=== PATIENT | female | born 1960 | race Caucasian/White ===

== ENCOUNTER 2016-11-26 05:57 | Outpatient (CLI) | payer OTHER ==
[2016-11-26 06:36] LABS: BASOPHILS # (AUTO) 0.1 K/uL (0.00-0.22); BASOPHILS % (AUTO) 1.3 % (0.0-2.0); EOSINOPHILS # (AUTO) 0.5 K/uL (0-0.4); EOSINOPHILS % (AUTO) 6.8 % (0.0-4.0); HEMATOCRIT 39.6 % (36-48); HEMOGLOBIN 13.2 g/dL (12.0-16.0); LYMPHOCYTES # (AUTO) 1.7 K/uL (2.5-16.5); LYMPHOCYTES % (AUTO) 23.7 % (20.5-51.1); MEAN CORPUSCULAR HEMOGLOBIN 28 pg (27-31); MEAN CORPUSCULAR HGB CONC 33 g/dL (33-37); MEAN CORPUSCULAR VOLUME 84 fL (80-94); MONOCYTES # (AUTO) 0.6 K/uL (0.8-1.0); MONOCYTES % (AUTO) 9.2 % (1.7-9.3); NEUTROPHILS # (AUTO) 4.1 K/uL (1.8-7.7); PLATELET COUNT (AUTO) 231 K/uL (140-450); RED BLOOD CELL COUNT(AUTO) 4.71 MIL/uL (4.20-5.40); RED CELL DISTRIBUTION WIDTH 13.6 % (11.6-13.7)
[2016-11-26 06:40] LABS: APPEARANCE,URINE CLEAR (CLEAR); BILIRUBIN,URINE NEGATIVE (NEGATIVE); BLOOD, URINE NEGATIVE (NEGATIVE); LEUKOCYTE ESTERASE ,URINE NEGATIVE (NEGATIVE); NITRITE, URINE NEGATIVE (NEGATIVE); PH,URINE 6.5 (5.0-9.0); PROTEIN,URINE NEGATIVE (NEGATIVE); UGLUCOSE NEGATIVE (NEGATIVE); UROBILINOGEN,URINE 0.2 EU/dL (0.2 - 1)
[2016-11-26 07:25] LABS: ALBUMIN 3.7 g/dL (3.4-5.0); ANION GAP 15.3 (8-16); CALCIUM 8.5 mg/dL (8.5-10.1); CARBON DIOXIDE 24.8 mmol/L (21-32); CHOL/HDL RATIO 2.6 (1-4.5); CREATININE 0.9 mg/dL (0.6-1.3); POTASSIUM 4.1 mmol/L (3.5-5.1); TOTAL BILIRUBIN 0.5 mg/dL (0.0-1.0); TOTAL PROTEIN, SERUM 7.5 g/dL (6.4-8.2)
[2016-11-26 08:43] LABS: COLOR,URINE STRAW (YELLOW)
[2016-11-26 08:45] LABS: BACTERIA,URINE None Seen /HPF (None Seen); RBC,URINE NONE SEEN /HPF (0-5); SQUAMOUS EPITHELIAL CELL,UR 0-3 (FEW) /LPF (0-3 (FEW)); WBC,URINE NONE SEEN /HPF (0-5)
== END 2016-11-26 21:42 | disposition home or self-care (01) ==
LOC: MLB 05:57
PROVIDERS: ATTEND Family Medicine
DX: E23.2 Diabetes insipidus (principal); R73.03 Prediabetes; E66.09 Other obesity due to excess calories
CPT/HCPCS: 36415; 80053; 81001; 83036; 85025

== ENCOUNTER 2017-06-09 07:07 | Outpatient (CLI) | payer OTHER ==
[2017-06-09 07:38] LABS: BASOPHILS # (AUTO) 0.3 K/uL (0.00-0.22); BASOPHILS % (AUTO) 3.8 % (0.0-2.0); EOSINOPHILS # (AUTO) 0.5 K/uL (0-0.4); HEMATOCRIT 39.7 % (36-48); HEMOGLOBIN 13.1 g/dL (12.0-16.0); LYMPHOCYTES # (AUTO) 1.5 K/uL (2.5-16.5); LYMPHOCYTES % (AUTO) 17.7 % (20.5-51.1); MEAN CORPUSCULAR HEMOGLOBIN 28 pg (27-31); MEAN CORPUSCULAR HGB CONC 33 g/dL (33-37); MEAN CORPUSCULAR VOLUME 84 fL (80-94); MONOCYTES # (AUTO) 0.7 K/uL (0.8-1.0); MONOCYTES % (AUTO) 7.6 % (1.7-9.3); NEUTROPHILS # (AUTO) 5.6 K/uL (1.8-7.7); NEUTROPHILS % (AUTO) 64.9 % (42.2-75.2); PLATELET COUNT (AUTO) 250 K/uL (140-450); WHITE BLOOD COUNT (AUTO) 8.6 K/uL (4.8-10.8)
[2017-06-09 07:52] LABS: ALBUMIN 3.8 g/dL (3.4-5.0); ANION GAP 15.7 (8-16); CARBON DIOXIDE 24.5 mmol/L (21-32); CHOL/HDL RATIO 3.2 (1-4.5); CREATININE 0.9 mg/dL (0.6-1.3); POTASSIUM 4.2 mmol/L (3.5-5.1); THYROID STIMULATING HORMONE 1.84 uIU/mL (0.34-3.74); TOTAL BILIRUBIN 0.5 mg/dL (0.0-1.0)
[2017-06-09 07:57] LABS: APPEARANCE,URINE CLEAR (CLEAR); BILIRUBIN,URINE NEGATIVE (NEGATIVE); BLOOD, URINE NEGATIVE (NEGATIVE); COLOR,URINE YELLOW (YELLOW); LEUKOCYTE ESTERASE ,URINE NEGATIVE (NEGATIVE); NITRITE, URINE NEGATIVE (NEGATIVE); PH,URINE 5.5 (5.0-9.0); UGLUCOSE NEGATIVE (NEGATIVE)
[2017-06-09 09:07] LABS: RBC,URINE 0-5 (RARE) /HPF (0-5); WBC,URINE 0-5 (RARE) /HPF (0-5)
== END 2017-06-09 21:46 | disposition home or self-care (01) ==
LOC: MLB 07:07
PROVIDERS: ATTEND Family Medicine
DX: E23.2 Diabetes insipidus (principal); E66.09 Other obesity due to excess calories; R73.03 Prediabetes
CPT/HCPCS: 36415; 80053; 81001; 82306; 83036; 84443; 85025

== ENCOUNTER 2017-11-26 05:22 | Outpatient (CLI) | payer OTHER ==
[2017-11-26 07:34] LABS: BASOPHILS % (AUTO) 0.6 % (0.0-2.0); EOSINOPHILS # (AUTO) 0.3 K/uL (0-0.4); EOSINOPHILS % (AUTO) 4.5 % (0.0-4.0); HEMATOCRIT 38.7 % (36-48); HEMOGLOBIN 12.8 g/dL (12.0-16.0); LYMPHOCYTES # (AUTO) 1.9 K/uL (2.5-16.5); LYMPHOCYTES % (AUTO) 28.9 % (20.5-51.1); MEAN CORPUSCULAR HEMOGLOBIN 28 pg (27-31); MEAN CORPUSCULAR HGB CONC 33 g/dL (33-37); MEAN CORPUSCULAR VOLUME 84.1 fL (80-94); MONOCYTES # (AUTO) 0.4 K/uL (0.8-1.0); MONOCYTES % (AUTO) 6.3 % (1.7-9.3); NEUTROPHILS # (AUTO) 3.9 K/uL (1.8-7.7); NEUTROPHILS % (AUTO) 59.7 % (42.2-75.2); PLATELET COUNT (AUTO) 226 K/uL (140-450); RED CELL DISTRIBUTION WIDTH 14.7 % (11.6-13.7); WHITE BLOOD COUNT (AUTO) 6.6 K/uL (4.8-10.8)
[2017-11-26 07:59] LABS: ALBUMIN 3.6 g/dL (3.4-5.0); ANION GAP 14.1 (8-16); CARBON DIOXIDE 25.9 mmol/L (21-32); CHOL/HDL RATIO 3.3 (1-4.5); CREATININE 0.9 mg/dL (0.6-1.3); TOTAL BILIRUBIN 0.5 mg/dL (0.0-1.0)
[2017-11-26 08:02] LABS: APPEARANCE,URINE CLEAR (CLEAR); BILIRUBIN,URINE NEGATIVE (NEGATIVE); BLOOD, URINE NEGATIVE (NEGATIVE); COLOR,URINE YELLOW (YELLOW); LEUKOCYTE ESTERASE ,URINE NEGATIVE (NEGATIVE); NITRITE, URINE NEGATIVE (NEGATIVE); UGLUCOSE NEGATIVE (NEGATIVE)
== END 2017-11-26 18:30 | disposition home or self-care (01) ==
LOC: MLB 05:22
PROVIDERS: ATTEND Family Medicine
DX: R73.09 Other abnormal glucose (principal); E78.2 Mixed hyperlipidemia; E66.09 Other obesity due to excess calories; E23.2 Diabetes insipidus
CPT/HCPCS: 36415; 80053; 81003; 82306; 82607; 83036; 85025

== ENCOUNTER 2017-12-09 06:40 | Outpatient (CLI) | payer OTHER | END 2017-12-09 17:58 | disposition home or self-care (01) | LOC: MRD 06:40 | PROVIDERS: ATTEND Family Medicine | DX: M54.5 Low back pain (principal); M25.531 Pain in right wrist; M19.032 Primary osteoarthritis, left wrist; M25.552 Pain in left hip; E78.2 Mixed hyperlipidemia; E66.01 Morbid (severe) obesity due to excess calories | CPT/HCPCS: 72110; 73110; 73502 ==

== ENCOUNTER 2018-06-01 05:56 | Outpatient (CLI) | payer OTHER ==
[2018-06-01 08:11] LABS: BASOPHILS % (AUTO) 0.6 % (0.0-2.0); EOSINOPHILS # (AUTO) 0.4 K/uL (0-0.4); EOSINOPHILS % (AUTO) 5.6 % (0.0-4.0); HEMATOCRIT 39.7 % (36-48); HEMOGLOBIN 12.7 g/dL (12.0-16.0); LYMPHOCYTES # (AUTO) 1.8 K/uL (2.5-16.5); LYMPHOCYTES % (AUTO) 24.3 % (20.5-51.1); MEAN CORPUSCULAR HEMOGLOBIN 27 pg (27-31); MEAN CORPUSCULAR HGB CONC 32 g/dL (33-37); MONOCYTES # (AUTO) 0.5 K/uL (0.8-1.0); NEUTROPHILS # (AUTO) 4.7 K/uL (1.8-7.7); NEUTROPHILS % (AUTO) 62.5 % (42.2-75.2); PLATELET COUNT (AUTO) 254 K/uL (140-450); RED BLOOD CELL COUNT(AUTO) 4.67 MIL/uL (4.20-5.40); RED CELL DISTRIBUTION WIDTH 14.7 % (11.6-13.7); WHITE BLOOD COUNT (AUTO) 7.5 K/uL (4.8-10.8)
[2018-06-01 08:34] LABS: ALBUMIN 3.8 g/dL (3.4-5.0); ANION GAP 14.6 (8-16); CARBON DIOXIDE 27.7 mmol/L (21-32); CHOL/HDL RATIO 3.4 (1-4.5); CREATININE 0.8 mg/dL (0.6-1.3); POTASSIUM 4.3 mmol/L (3.5-5.1); THYROID STIMULATING HORMONE 1.49 uIU/mL (0.34-3.74); TOTAL BILIRUBIN 0.5 mg/dL (0.0-1.0)
[2018-06-01 09:36] LABS: APPEARANCE,URINE CLEAR (CLEAR); BILIRUBIN,URINE NEGATIVE (NEGATIVE); BLOOD, URINE TRACE-I (NEGATIVE); COLOR,URINE YELLOW (YELLOW); LEUKOCYTE ESTERASE ,URINE TRACE (NEGATIVE); NITRITE, URINE NEGATIVE (NEGATIVE); UGLUCOSE NEGATIVE (NEGATIVE)
[2018-06-01 09:39] LABS: RBC,URINE 0-5 (RARE) /HPF (0-5); WBC,URINE 0-5 (RARE) /HPF (0-5)
== END 2018-06-01 21:37 | disposition home or self-care (01) ==
LOC: MLB 05:56
PROVIDERS: ATTEND Family Medicine
DX: E78.2 Mixed hyperlipidemia (principal); E53.8 Deficiency of other specified B group vitamins; E55.9 Vitamin D deficiency, unspecified; E23.2 Diabetes insipidus; E66.01 Morbid (severe) obesity due to excess calories
CPT/HCPCS: 36415; 80053; 81001; 82306; 83036; 84443; 85025

== ENCOUNTER 2018-07-09 07:00 | Outpatient (CLI) | payer OTHER | END 2018-07-09 20:35 | disposition home or self-care (01) | LOC: MUS 07:00 | PROVIDERS: ATTEND Family Medicine Geriatric Medicine | DX: R10.11 Right upper quadrant pain (principal) | CPT/HCPCS: 76700 ==

== ENCOUNTER 2018-11-11 06:38 | Outpatient (CLI) | payer OTHER ==
[2018-11-11 08:31] LABS: APPEARANCE,URINE CLEAR (CLEAR); COLOR,URINE YELLOW (YELLOW)
[2018-11-11 08:32] LABS: BILIRUBIN,URINE NEGATIVE (NEGATIVE); BLOOD, URINE TRACE (NEGATIVE); LEUKOCYTE ESTERASE ,URINE NEGATIVE (NEGATIVE); NITRITE, URINE NEGATIVE (NEGATIVE); PH,URINE 6.5 (5.0-9.0); UGLUCOSE NEGATIVE (NEGATIVE)
[2018-11-11 09:02] LABS: BASOPHILS # (AUTO) 0.1 K/uL (0.00-0.22); BASOPHILS % (AUTO) 0.8 % (0.0-2.0); EOSINOPHILS # (AUTO) 0.4 K/uL (0-0.4); EOSINOPHILS % (AUTO) 5.5 % (0.0-4.0); HEMATOCRIT 39.3 % (36-48); HEMOGLOBIN 12.9 g/dL (12.0-16.0); LYMPHOCYTES # (AUTO) 1.7 K/uL (2.5-16.5); LYMPHOCYTES % (AUTO) 26.4 % (20.5-51.1); MEAN CORPUSCULAR HEMOGLOBIN 28 pg (27-31); MEAN CORPUSCULAR HGB CONC 33 g/dL (33-37); MEAN CORPUSCULAR VOLUME 84.6 fL (80-94); MONOCYTES # (AUTO) 0.4 K/uL (0.8-1.0); MONOCYTES % (AUTO) 6.8 % (1.7-9.3); NEUTROPHILS % (AUTO) 60.5 % (42.2-75.2); PLATELET COUNT (AUTO) 240 K/uL (140-450); RED BLOOD CELL COUNT(AUTO) 4.65 MIL/uL (4.20-5.40); RED CELL DISTRIBUTION WIDTH 14.9 % (11.6-13.7); WHITE BLOOD COUNT (AUTO) 6.6 K/uL (4.8-10.8)
[2018-11-11 09:41] LABS: ANION GAP 12.1 (8-16); CARBON DIOXIDE 27.8 mmol/L (21-32); CREATININE 0.8 mg/dL (0.6-1.3); POTASSIUM 3.9 mmol/L (3.5-5.1); TOTAL BILIRUBIN 0.4 mg/dL (0.0-1.0)
[2018-11-11 09:42] LABS: ALBUMIN 3.7 g/dL (3.4-5.0); CHOL/HDL RATIO 3.3 (1-4.5); THYROID STIMULATING HORMONE 1.6 uIU/mL (0.34-3.74)
[2018-11-11 10:08] LABS: WBC,URINE 0-5 /HPF (0-5)
[2018-11-11 10:09] LABS: RBC,URINE 0-5 /HPF (0-5)
[2018-11-12 09:12] LABS: MICROALBUMIN, UR RANDOM <3.0 ug/mL (Not Estab.)
== END 2018-11-11 22:13 | disposition home or self-care (01) ==
LOC: MLB 06:38
PROVIDERS: ATTEND Family Medicine Geriatric Medicine
DX: Z13.29 Encounter for screening for other suspected endocrine disorder (principal); Z13.21 Encounter for screening for nutritional disorder; Z13.0 Encounter for screening for diseases of the blood and blood-forming organs and certain disorders involving the immune mechanism; E23.2 Diabetes insipidus; E78.5 Hyperlipidemia, unspecified; E53.8 Deficiency of other specified B group vitamins; E55.9 Vitamin D deficiency, unspecified; R73.09 Other abnormal glucose
CPT/HCPCS: 36415; 80053; 81001; 82043; 82306; 82607; 83036; 84436; 84443; 85025

== ENCOUNTER 2019-03-30 09:02 | Outpatient (CLI) | payer OTHER | END 2019-03-30 22:10 | disposition home or self-care (01) | LOC: MRD 09:02 | DX: J32.9 Chronic sinusitis, unspecified (principal) | CPT/HCPCS: 70220 ==

== ENCOUNTER 2019-04-19 05:43 | Emergency (ER) | payer OTHER ==
[~2019-04-19] VITALS: Ht 172.7 cm; Wt 116.1 kg
--- NOTE | 2019-04-19 05:50 | NUR ---
PT TAKEN TO BED 7
[2019-04-19 05:54] VITALS: BP 147/73
--- NOTE | 2019-04-19 05:56 | NUR ---
59 Y/O FEMALE C/O LT EYE IRRITATION. PT STATES SHE WOKE UP WITH DISCHARGE FROM LT EYE. NO DISCHARGE NOTED AT THIS TIME. COMPLAINS OF ITCHING. DENIES PAIN. MILD REDNESS NOTED TO LT EYE. PT DENIES FEVER. PT SITTING IN BED CALM AND PLEASANT. VSS.
--- NOTE | 2019-04-19 05:56 | NUR ---
Dr. Valdez examining patient.
[2019-04-19] MEDS: TETRACAINE HCL/PF 0.5% OPTH 4 ML BTL OP ONE (06:03)
[2019-04-19] MEDS: FLUORESCEIN OPTH STRIP 1 MG OP ONE (06:04)
[2019-04-19 06:23] VITALS: BP 147/73
--- NOTE | 2019-04-19 06:23 | NUR ---
Patient discharged with v/s stable. Written and verbal after care instructions given and explained. Patient alert, oriented and verbalized understanding of instructions. Ambulatory with steady gait. All questions addressed prior to discharge. ID band removed. Patient advised to follow up with PMD. Rx of eye drops given. Patient educated on indication of medication including possible reaction and side effects. Opportunity to ask questions provided and answered.
== END 2019-04-19 06:23 | disposition home or self-care (01) ==
LOC: MED 05:43
DX: H00.016 Hordeolum externum left eye, unspecified eyelid (principal); E11.9 Type 2 diabetes mellitus without complications
CPT/HCPCS: 99283

== ENCOUNTER 2019-06-02 06:09 | Outpatient (CLI) | payer OTHER ==
[2019-06-02 07:20] LABS: APPEARANCE,URINE CLEAR (CLEAR); BILIRUBIN,URINE NEGATIVE (NEGATIVE); BLOOD, URINE NEGATIVE (NEGATIVE); COLOR,URINE YELLOW (YELLOW); LEUKOCYTE ESTERASE ,URINE NEGATIVE (NEGATIVE); NITRITE, URINE NEGATIVE (NEGATIVE); UGLUCOSE NEGATIVE (NEGATIVE)
[2019-06-02 07:27] LABS: BASOPHILS # (AUTO) 0.1 K/uL (0.00-0.22); BASOPHILS % (AUTO) 0.8 % (0.0-2.0); EOSINOPHILS # (AUTO) 0.4 K/uL (0-0.4); EOSINOPHILS % (AUTO) 5.3 % (0.0-4.0); HEMATOCRIT 41.8 % (36-48); HEMOGLOBIN 13.5 g/dL (12.0-16.0); LYMPHOCYTES # (AUTO) 1.7 K/uL (2.5-16.5); LYMPHOCYTES % (AUTO) 23.2 % (20.5-51.1); MEAN CORPUSCULAR HEMOGLOBIN 28 pg (27-31); MEAN CORPUSCULAR HGB CONC 32 g/dL (33-37); MEAN CORPUSCULAR VOLUME 85.6 fL (80-94); MONOCYTES # (AUTO) 0.6 K/uL (0.8-1.0); MONOCYTES % (AUTO) 7.7 % (1.7-9.3); NEUTROPHILS # (AUTO) 4.6 K/uL (1.8-7.7); PLATELET COUNT (AUTO) 256 K/uL (140-450); RED BLOOD CELL COUNT(AUTO) 4.88 MIL/uL (4.20-5.40); RED CELL DISTRIBUTION WIDTH 14.8 % (11.6-13.7); WHITE BLOOD COUNT (AUTO) 7.3 K/uL (4.8-10.8)
[2019-06-02 07:37] LABS: RBC,URINE 0-5 /HPF (0-5); WBC,URINE 0-5 /HPF (0-5)
[2019-06-02 14:32] LABS: ALBUMIN 3.9 g/dL (3.4-5.0); ANION GAP 18.5 (8-16); CHOL/HDL RATIO 3.8 (1-4.5); CREATININE 0.9 mg/dL (0.6-1.3); POTASSIUM 4.5 mmol/L (3.5-5.1); TOTAL BILIRUBIN 0.5 mg/dL (0.0-1.0)
== END 2019-06-02 21:25 | disposition home or self-care (01) ==
LOC: MLB 06:09
DX: M47.892 Other spondylosis, cervical region (principal); M43.12 Spondylolisthesis, cervical region; M40.40 Postural lordosis, site unspecified; E23.2 Diabetes insipidus; E78.2 Mixed hyperlipidemia; R73.09 Other abnormal glucose
CPT/HCPCS: 36415; 72050; 80053; 81001; 83036; 85025

== ENCOUNTER 2019-06-10 06:10 | Outpatient (CLI) | payer OTHER | END 2019-06-10 21:30 | disposition home or self-care (01) | LOC: MLB 06:10 | DX: J30.1 Allergic rhinitis due to pollen (principal) | CPT/HCPCS: 36415; 86003 ==

== ENCOUNTER 2019-12-02 05:36 | Outpatient (CLI) | payer OTHER ==
[2019-12-02 07:01] LABS: BASOPHILS # (AUTO) 0.1 K/uL (0.00-0.22); BASOPHILS % (AUTO) 1.4 % (0.0-2.0); EOSINOPHILS # (AUTO) 0.4 K/uL (0-0.4); HEMATOCRIT 41.1 % (36-48); HEMOGLOBIN 13.4 g/dL (12.0-16.0); LYMPHOCYTES # (AUTO) 1.5 K/uL (2.5-16.5); LYMPHOCYTES % (AUTO) 22.8 % (20.5-51.1); MEAN CORPUSCULAR HEMOGLOBIN 28 pg (27-31); MEAN CORPUSCULAR HGB CONC 33 g/dL (33-37); MEAN CORPUSCULAR VOLUME 85.6 fL (80-94); MONOCYTES # (AUTO) 0.5 K/uL (0.8-1.0); NEUTROPHILS # (AUTO) 4.1 K/uL (1.8-7.7); NEUTROPHILS % (AUTO) 61.8 % (42.2-75.2); PLATELET COUNT (AUTO) 252 K/uL (140-450); RED CELL DISTRIBUTION WIDTH 14.6 % (11.6-13.7); WHITE BLOOD COUNT (AUTO) 6.6 K/uL (4.8-10.8)
[2019-12-02 07:08] LABS: APPEARANCE,URINE CLEAR (CLEAR); BILIRUBIN,URINE NEGATIVE (NEGATIVE); BLOOD, URINE NEGATIVE (NEGATIVE); COLOR,URINE YELLOW (YELLOW); LEUKOCYTE ESTERASE ,URINE NEGATIVE (NEGATIVE); NITRITE, URINE NEGATIVE (NEGATIVE); PH,URINE 5.5 (5.0-9.0); UGLUCOSE NEGATIVE (NEGATIVE)
[2019-12-02 07:31] LABS: ANION GAP 13.6 (8-16); CARBON DIOXIDE 26.5 mmol/L (21-32); CHOL/HDL RATIO 3.8 (1-4.5); CREATININE 1.1 mg/dL (0.6-1.3); POTASSIUM 4.1 mmol/L (3.5-5.1); THYROID STIMULATING HORMONE 1.92 uIU/mL (0.34-3.74); TOTAL BILIRUBIN 0.5 mg/dL (0.0-1.0)
[2019-12-03 07:10] LABS: T4 FREE (DIRECT) 1.24 ng/dL (0.82-1.77)
== END 2019-12-02 19:43 | disposition home or self-care (01) ==
LOC: MLB 05:36
DX: E78.2 Mixed hyperlipidemia (principal); E23.2 Diabetes insipidus; R73.09 Other abnormal glucose; E66.01 Morbid (severe) obesity due to excess calories; F41.8 Other specified anxiety disorders
CPT/HCPCS: 36415; 80053; 81003; 82306; 82607; 83036; 84439; 84443; 85025

== ENCOUNTER 2020-06-15 05:42 | Outpatient (CLI) | payer OTHER ==
[2020-06-15 07:14] LABS: BASOPHILS # (AUTO) 0.1 K/uL (0.00-0.22); BASOPHILS % (AUTO) 0.7 % (0.0-2.0); EOSINOPHILS # (AUTO) 0.5 K/uL (0-0.4); EOSINOPHILS % (AUTO) 6.1 % (0.0-4.0); HEMATOCRIT 39.9 % (36-48); LYMPHOCYTES # (AUTO) 1.6 K/uL (2.5-16.5); LYMPHOCYTES % (AUTO) 21.6 % (20.5-51.1); MEAN CORPUSCULAR HEMOGLOBIN 28 pg (27-31); MEAN CORPUSCULAR HGB CONC 33 g/dL (33-37); MEAN CORPUSCULAR VOLUME 84.4 fL (80-94); MONOCYTES # (AUTO) 0.7 K/uL (0.8-1.0); NEUTROPHILS # (AUTO) 4.6 K/uL (1.8-7.7); NEUTROPHILS % (AUTO) 62.6 % (42.2-75.2); PLATELET COUNT (AUTO) 261 K/uL (140-450); RED BLOOD CELL COUNT(AUTO) 4.72 MIL/uL (4.20-5.40); WHITE BLOOD COUNT (AUTO) 7.4 K/uL (4.8-10.8)
[2020-06-15 07:42] LABS: ALBUMIN 3.8 g/dL (3.4-5.0); ANION GAP 15.4 (8-16); CARBON DIOXIDE 24.8 mmol/L (21-32); POTASSIUM 4.2 mmol/L (3.5-5.1); TOTAL BILIRUBIN 0.5 mg/dL (0.0-1.0)
[2020-06-15 08:16] LABS: CHOL/HDL RATIO 3.6 (1-4.5)
[2020-06-15 08:47] LABS: APPEARANCE,URINE CLEAR (CLEAR); BILIRUBIN,URINE NEGATIVE (NEGATIVE); BLOOD, URINE NEGATIVE (NEGATIVE); COLOR,URINE YELLOW (YELLOW); LEUKOCYTE ESTERASE ,URINE NEGATIVE (NEGATIVE); NITRITE, URINE NEGATIVE (NEGATIVE); UGLUCOSE NEGATIVE (NEGATIVE)
== END 2020-06-15 20:59 | disposition home or self-care (01) ==
LOC: MLB 05:42
DX: E78.00 Pure hypercholesterolemia, unspecified (principal); R73.09 Other abnormal glucose; E23.2 Diabetes insipidus; E66.01 Morbid (severe) obesity due to excess calories
CPT/HCPCS: 36415; 80053; 81003; 83036; 85025

== ENCOUNTER 2020-08-07 04:59 | Emergency (ER) | payer OTHER ==
[~2020-08-07] VITALS: Ht 172.7 cm; Wt 117.9 kg
[2020-08-07 05:03] VITALS: BP 151/70
[2020-08-07] MEDS ORDERED: IBUPROFEN 600 MG TAB PO ONE (05:25)
[2020-08-07] MEDS ORDERED: ACETAMINOPHEN 325 MG TAB PO ONE (05:25)
[2020-08-07] MEDS ORDERED: CYCL10TA33 PO (06:39)
[2020-08-07] MEDS ORDERED: IBUP-2213 PO (06:39)
[2020-08-07 06:48] VITALS: BP 151/70
== END 2020-08-07 06:50 | disposition home or self-care (01) ==
LOC: MED 04:59
DX: S83.8X1A Sprain of other specified parts of right knee, initial encounter (principal); E11.9 Type 2 diabetes mellitus without complications; Z79.899 Other long term (current) drug therapy; M25.512 Pain in left shoulder; W18.39XA Other fall on same level, initial encounter; Y93.89 Activity, other specified; Y92.89 Other specified places as the place of occurrence of the external cause; Y99.8 Other external cause status
CPT/HCPCS: 72100; 73502; 73562; 99284

== ENCOUNTER 2020-10-20 06:29 | Outpatient (CLI) | payer OTHER ==
[~2020-10-20 06:29] MED LIST: CYCL10TA33 PO; IBUP-2213 PO
[2020-10-20 08:34] LABS: ALBUMIN 3.8 g/dL (3.4-5.0); ANION GAP 12.3 (8-16); CARBON DIOXIDE 27.6 mmol/L (21-32); CREATININE 0.8 mg/dL (0.6-1.3); POTASSIUM 3.9 mmol/L (3.5-5.1); TOTAL BILIRUBIN 0.6 mg/dL (0.0-1.0)
[2020-10-20 08:35] LABS: APPEARANCE,URINE CLEAR (CLEAR); BILIRUBIN,URINE NEGATIVE (NEGATIVE); BLOOD, URINE NEGATIVE (NEGATIVE); COLOR,URINE YELLOW (YELLOW); LEUKOCYTE ESTERASE ,URINE 1+ (NEGATIVE); NITRITE, URINE NEGATIVE (NEGATIVE); PH,URINE 6.5 (5.0-9.0); UGLUCOSE NEGATIVE (NEGATIVE)
[2020-10-20 08:47] LABS: BASOPHILS % (AUTO) 0.5 % (0.0-2.0); EOSINOPHILS # (AUTO) 0.4 K/uL (0-0.4); EOSINOPHILS % (AUTO) 6.7 % (0.0-4.0); HEMATOCRIT 38.5 % (36-48); HEMOGLOBIN 12.8 g/dL (12.0-16.0); LYMPHOCYTES # (AUTO) 1.6 K/uL (2.5-16.5); LYMPHOCYTES % (AUTO) 23.9 % (20.5-51.1); MEAN CORPUSCULAR HEMOGLOBIN 28 pg (27-31); MEAN CORPUSCULAR HGB CONC 33 g/dL (33-37); MEAN CORPUSCULAR VOLUME 84.2 fL (80-94); MONOCYTES # (AUTO) 0.5 K/uL (0.8-1.0); MONOCYTES % (AUTO) 7.5 % (1.7-9.3); NEUTROPHILS # (AUTO) 4.1 K/uL (1.8-7.7); NEUTROPHILS % (AUTO) 61.4 % (42.2-75.2); PLATELET COUNT (AUTO) 232 K/uL (140-450); RED BLOOD CELL COUNT(AUTO) 4.58 MIL/uL (4.20-5.40); RED CELL DISTRIBUTION WIDTH 14.4 % (11.6-13.7); WHITE BLOOD COUNT (AUTO) 6.7 K/uL (4.8-10.8)
[2020-10-20 08:56] LABS: CHOL/HDL RATIO 3.7 (1-4.5); THYROID STIMULATING HORMONE 1.35 uIU/mL (0.34-3.74)
[2020-10-20 09:46] LABS: RBC,URINE 0-5 /HPF (0-5)
[2020-10-22 09:06] LABS: MICROALBUMIN, UR RANDOM <3.0 ug/mL (Not Estab.)
== END 2020-10-20 20:07 | disposition home or self-care (01) ==
LOC: MLB 06:29
DX: Z13.21 Encounter for screening for nutritional disorder (principal); Z13.228 Encounter for screening for other metabolic disorders; Z13.0 Encounter for screening for diseases of the blood and blood-forming organs and certain disorders involving the immune mechanism; E78.5 Hyperlipidemia, unspecified; E23.2 Diabetes insipidus; Z13.29 Encounter for screening for other suspected endocrine disorder
CPT/HCPCS: 36415; 80053; 81001; 82043; 82306; 83036; 84439; 84443; 85025; 87086

== ENCOUNTER 2020-12-08 05:14 | Outpatient (CLI) | payer OTHER ==
[2020-12-08 07:36] LABS: BASOPHILS # (AUTO) 0.1 K/uL (0.00-0.22); EOSINOPHILS # (AUTO) 0.3 K/uL (0-0.4); EOSINOPHILS % (AUTO) 4.1 % (0.0-4.0); HEMOGLOBIN 13.3 g/dL (12.0-16.0); LYMPHOCYTES # (AUTO) 1.5 K/uL (2.5-16.5); LYMPHOCYTES % (AUTO) 23.9 % (20.5-51.1); MEAN CORPUSCULAR HEMOGLOBIN 28 pg (27-31); MEAN CORPUSCULAR HGB CONC 32 g/dL (33-37); MEAN CORPUSCULAR VOLUME 85.2 fL (80-94); MONOCYTES # (AUTO) 0.5 K/uL (0.8-1.0); MONOCYTES % (AUTO) 8.4 % (1.7-9.3); NEUTROPHILS # (AUTO) 3.9 K/uL (1.8-7.7); NEUTROPHILS % (AUTO) 62.6 % (42.2-75.2); PLATELET COUNT (AUTO) 251 K/uL (140-450); RED BLOOD CELL COUNT(AUTO) 4.81 MIL/uL (4.20-5.40); RED CELL DISTRIBUTION WIDTH 14.4 % (11.6-13.7); WHITE BLOOD COUNT (AUTO) 6.2 K/uL (4.8-10.8)
[2020-12-08 08:55] LABS: ALBUMIN 4.4 g/dL (3.4-5.0); ANION GAP 11.6 (8-16); CARBON DIOXIDE 27.3 mmol/L (21-32); CHOL/HDL RATIO 3.4 (1-4.5); CREATININE 0.8 mg/dL (0.6-1.3); POTASSIUM 3.9 mmol/L (3.5-5.1); THYROID STIMULATING HORMONE 1.54 uIU/mL (0.34-3.74); TOTAL BILIRUBIN 0.6 mg/dL (0.0-1.0)
== END 2020-12-08 20:29 | disposition home or self-care (01) ==
LOC: MLB 05:14
DX: E55.9 Vitamin D deficiency, unspecified (principal); E23.2 Diabetes insipidus; E53.8 Deficiency of other specified B group vitamins; E66.01 Morbid (severe) obesity due to excess calories; R73.09 Other abnormal glucose
CPT/HCPCS: 36415; 80053; 82306; 82607; 83036; 84443; 85025; 87086

== ENCOUNTER 2021-06-06 06:32 | Outpatient (CLI) | payer OTHER ==
[2021-06-06 07:23] LABS: BILIRUBIN,URINE NEGATIVE (NEGATIVE); BLOOD, URINE NEGATIVE (NEGATIVE); COLOR,URINE YELLOW (YELLOW); LEUKOCYTE ESTERASE ,URINE TRACE (NEGATIVE); NITRITE, URINE NEGATIVE (NEGATIVE); UGLUCOSE NEGATIVE (NEGATIVE)
[2021-06-06 07:33] LABS: APPEARANCE,URINE SLIGHTLY HAZY (CLEAR); RBC,URINE 0-5 /HPF (0-5)
[2021-06-06 13:23] LABS: BASOPHILS # (AUTO) 0.1 K/uL (0.00-0.22); BASOPHILS % (AUTO) 1.1 % (0.0-2.0); EOSINOPHILS # (AUTO) 0.4 K/uL (0-0.4); HEMATOCRIT 39.3 % (36-48); HEMOGLOBIN 12.6 g/dL (12.0-16.0); LYMPHOCYTES # (AUTO) 1.5 K/uL (2.5-16.5); LYMPHOCYTES % (AUTO) 22.8 % (20.5-51.1); MEAN CORPUSCULAR HEMOGLOBIN 27 pg (27-31); MEAN CORPUSCULAR HGB CONC 32 g/dL (33-37); MONOCYTES # (AUTO) 0.5 K/uL (0.8-1.0); MONOCYTES % (AUTO) 7.9 % (1.7-9.3); NEUTROPHILS # (AUTO) 4.1 K/uL (1.8-7.7); NEUTROPHILS % (AUTO) 62.2 % (42.2-75.2); PLATELET COUNT (AUTO) 245 K/uL (140-450); RED BLOOD CELL COUNT(AUTO) 4.62 MIL/uL (4.20-5.40); WHITE BLOOD COUNT (AUTO) 6.6 K/uL (4.8-10.8)
[2021-06-06 13:36] LABS: ALBUMIN 3.7 g/dL (3.4-5.0); ANION GAP 14.3 (8-16); CHOL/HDL RATIO 3.5 (1-4.5); CREATININE 0.8 mg/dL (0.6-1.3); POTASSIUM 4.3 mmol/L (3.5-5.1); TOTAL BILIRUBIN 0.5 mg/dL (0.0-1.0)
== END 2021-06-06 17:57 | disposition home or self-care (01) ==
LOC: MLB 06:32
PROVIDERS: ATTEND Specialist
DX: E23.2 Diabetes insipidus (principal); R73.09 Other abnormal glucose
CPT/HCPCS: 36415; 80053; 81001; 83036; 85025; 86900; 86901; 87086

== ENCOUNTER 2021-12-05 05:37 | Outpatient (CLI) | payer OTHER ==
[2021-12-05 05:50] LABS: BASOPHILS # (AUTO) 0.2 K/uL (0.00-0.22); EOSINOPHILS # (AUTO) 0.5 K/uL (0-0.4); EOSINOPHILS % (AUTO) 6.2 % (0.0-4.0); HEMATOCRIT 37.1 % (36-48); HEMOGLOBIN 12.2 g/dL (12.0-16.0); LYMPHOCYTES # (AUTO) 1.4 K/uL (2.5-16.5); LYMPHOCYTES % (AUTO) 17.7 % (20.5-51.1); MEAN CORPUSCULAR HEMOGLOBIN 27 pg (27-31); MEAN CORPUSCULAR HGB CONC 33 g/dL (33-37); MEAN CORPUSCULAR VOLUME 83.3 fL (80-94); MONOCYTES # (AUTO) 0.6 K/uL (0.8-1.0); MONOCYTES % (AUTO) 8.2 % (1.7-9.3); NEUTROPHILS % (AUTO) 64.9 % (42.2-75.2); PLATELET COUNT (AUTO) 240 K/uL (140-450); RED BLOOD CELL COUNT(AUTO) 4.45 MIL/uL (4.20-5.40); RED CELL DISTRIBUTION WIDTH 14.5 % (11.6-13.7); WHITE BLOOD COUNT (AUTO) 7.7 K/uL (4.8-10.8)
[2021-12-05 06:14] LABS: ALBUMIN 3.7 g/dL (3.4-5.0); CHOL/HDL RATIO 2.8 (1-4.5); CREATININE 0.8 mg/dL (0.6-1.3); TOTAL BILIRUBIN 0.3 mg/dL (0.0-1.0)
[2021-12-05 06:45] LABS: APPEARANCE,URINE CLEAR (CLEAR); BILIRUBIN,URINE NEGATIVE (NEGATIVE); BLOOD, URINE NEGATIVE (NEGATIVE); COLOR,URINE YELLOW (YELLOW); LEUKOCYTE ESTERASE ,URINE NEGATIVE (NEGATIVE); NITRITE, URINE NEGATIVE (NEGATIVE); UGLUCOSE NEGATIVE (NEGATIVE)
== END 2021-12-05 20:17 | disposition home or self-care (01) ==
LOC: MLB 05:37
PROVIDERS: ATTEND Specialist
DX: E53.8 Deficiency of other specified B group vitamins (principal); E55.9 Vitamin D deficiency, unspecified; R73.09 Other abnormal glucose; E23.2 Diabetes insipidus; E66.01 Morbid (severe) obesity due to excess calories
CPT/HCPCS: 36415; 80053; 81003; 82306; 82607; 83036; 85025

== ENCOUNTER 2022-04-10 05:33 | Outpatient (CLI) | payer OTHER ==
[2022-04-10 07:21] LABS: THYROID STIMULATING HORMONE 1.78 uIU/mL (0.34-3.74)
== END 2022-04-10 21:47 | disposition home or self-care (01) ==
LOC: MLB 05:33 → MUS 21:47
PROVIDERS: ATTEND Family Medicine Geriatric Medicine
DX: M16.12 Unilateral primary osteoarthritis, left hip (principal); I86.2 Pelvic varices; Z13.29 Encounter for screening for other suspected endocrine disorder; D17.1 Benign lipomatous neoplasm of skin and subcutaneous tissue of trunk; M25.542 Pain in joints of left hand; M25.552 Pain in left hip; M79.645 Pain in left finger(s)
CPT/HCPCS: 36415; 73130; 73502; 76881; 84439; 84443; 86038

== ENCOUNTER 2022-05-20 08:17 | Outpatient (CLI) | payer OTHER ==
[2022-05-20 09:00] LABS: CREATININE 0.7 mg/dL (0.6-1.3)
== END 2022-05-20 18:51 | disposition home or self-care (01) ==
LOC: MLB 08:17
PROVIDERS: ATTEND Family Medicine Geriatric Medicine
DX: Z01.812 Encounter for preprocedural laboratory examination (principal)
CPT/HCPCS: 36415; 82565; 84520

== ENCOUNTER 2022-06-12 06:03 | Outpatient (CLI) | payer OTHER ==
[2022-06-12 07:00] LABS: ALBUMIN 4.1 g/dL (3.4-5.0); ANION GAP 12.8 (8-16); CARBON DIOXIDE 27.3 mmol/L (21-32); CHOL/HDL RATIO 3.3 (1-4.5); CREATININE 0.7 mg/dL (0.6-1.3); POTASSIUM 4.1 mmol/L (3.5-5.1); TOTAL BILIRUBIN 0.6 mg/dL (0.0-1.0)
[2022-06-12 07:33] LABS: BASOPHILS % (AUTO) 0.7 % (0.0-2.0); EOSINOPHILS # (AUTO) 0.3 K/uL (0-0.4); EOSINOPHILS % (AUTO) 4.6 % (0.0-4.0); HEMATOCRIT 37.9 % (36-48); HEMOGLOBIN 12.7 g/dL (12.0-16.0); LYMPHOCYTES # (AUTO) 1.5 K/uL (2.5-16.5); LYMPHOCYTES % (AUTO) 20.6 % (20.5-51.1); MEAN CORPUSCULAR HEMOGLOBIN 27 pg (27-31); MEAN CORPUSCULAR HGB CONC 34 g/dL (33-37); MEAN CORPUSCULAR VOLUME 81.3 fL (80-94); MONOCYTES # (AUTO) 0.6 K/uL (0.8-1.0); MONOCYTES % (AUTO) 8.8 % (1.7-9.3); NEUTROPHILS # (AUTO) 4.7 K/uL (1.8-7.7); NEUTROPHILS % (AUTO) 65.3 % (42.2-75.2); PLATELET COUNT (AUTO) 248 K/uL (140-450); RED BLOOD CELL COUNT(AUTO) 4.65 MIL/uL (4.20-5.40); WHITE BLOOD COUNT (AUTO) 7.1 K/uL (4.8-10.8)
[2022-06-12 08:36] LABS: APPEARANCE,URINE CLEAR (CLEAR); BILIRUBIN,URINE NEGATIVE (NEGATIVE); BLOOD, URINE NEGATIVE (NEGATIVE); COLOR,URINE YELLOW (YELLOW); LEUKOCYTE ESTERASE ,URINE NEGATIVE (NEGATIVE); NITRITE, URINE NEGATIVE (NEGATIVE); UGLUCOSE NEGATIVE (NEGATIVE)
== END 2022-06-12 20:07 | disposition home or self-care (01) ==
LOC: MLB 06:03
PROVIDERS: ATTEND Specialist
DX: E23.2 Diabetes insipidus (principal); E66.01 Morbid (severe) obesity due to excess calories; R73.09 Other abnormal glucose
CPT/HCPCS: 36415; 80053; 81003; 83036; 85025

== ENCOUNTER 2022-08-20 06:58 | Outpatient (CLI) | payer OTHER | END 2022-08-20 20:35 | disposition home or self-care (01) | LOC: MRD 06:58 | PROVIDERS: ATTEND Family Medicine Geriatric Medicine | DX: M25.542 Pain in joints of left hand (principal) | CPT/HCPCS: 73130 ==

== ENCOUNTER 2022-10-25 07:55 | Outpatient (CLI) | payer OTHER | END 2022-10-25 19:32 | disposition home or self-care (01) | LOC: MLB 07:55 → MUS 19:32 | PROVIDERS: ATTEND Family Medicine Geriatric Medicine | DX: Z13.228 Encounter for screening for other metabolic disorders (principal); M25.471 Effusion, right ankle; M25.472 Effusion, left ankle | CPT/HCPCS: 93925; 93970; Q0092 ==

== ENCOUNTER 2022-10-29 06:35 | Outpatient (CLI) | payer OTHER ==
[2022-10-29 07:38] LABS: ALBUMIN 3.8 g/dL (3.4-5.0); ANION GAP 10.8 (8-16); CARBON DIOXIDE 29.3 mmol/L (21-32); CREATININE 0.8 mg/dL (0.6-1.3); POTASSIUM 4.1 mmol/L (3.5-5.1); TOTAL BILIRUBIN 0.4 mg/dL (0.0-1.0)
== END 2022-10-29 21:38 | disposition home or self-care (01) ==
LOC: MLB 06:35
PROVIDERS: ATTEND Family Medicine Geriatric Medicine
DX: Z13.228 Encounter for screening for other metabolic disorders (principal)
CPT/HCPCS: 36415; 80053

== ENCOUNTER → 2022-11-28 | Outpatient (CLI) | payer OTHER | END | disposition home or self-care (01) | LOC: MUS 06:16 | PROVIDERS: ATTEND Family Medicine | DX: M16.0 Bilateral primary osteoarthritis of hip (principal); R22.32 Localized swelling, mass and lump, left upper limb; M51.36 Other intervertebral disc degeneration, lumbar region; M48.061 Spinal stenosis, lumbar region without neurogenic claudication; M25.552 Pain in left hip; M25.78 Osteophyte, vertebrae | CPT/HCPCS: 72110; 73502; 76881; Q0092 ==

== ENCOUNTER 2022-12-04 13:21 | Emergency (ER) | payer OTHER ==
[~2022-12-04] VITALS: Ht 170.2 cm; Wt 99.8 kg
[2022-12-04 13:33] VITALS: BP 145/84; PULSE 79; RESP 18; TEMP 97.8; O2SAT 98
[2022-12-04] MEDS ORDERED: methocarbamoL 500 MG TAB PO STA (14:14)
[2022-12-04] MEDS ORDERED: KETOROLAC 15 MG/ML VIAL IM ONE (14:15)
--- NOTE | 2022-12-04 14:29 | NUR ---
PATIENT PRESENTS TO ED WITH BILATERAL LEG EDEMA. PT STATES SHES BEEN HAVING THIS PAIN FOR THREE MONTHS NOW. PT STATES THAT PAIN STARTS IN LOWER LEGS AND RADIATES TO TAIL BONE ON RIGHT SIDE. PT HAS SOME SWELLING IN HER LOWER EXTREMITIES. DENIES N/V/D; SKIN IS PINK/WARM/DRY; AAOX4 WITH EVEN AND STEADY GAIT; LUNGS CLEAR BL; HR EVEN AND REGULAR; PT STATES SHES HAD A PRODUCTIVE COUGH FOR TWO DAYS. PT DENIES ANY FEVER, CP, SOB, AT THIS TIME; PATIENT STATES PAIN OF 10/10 AT THIS TIME; VSS; PATIENT POSITIONED FOR COMFORT; HOB ELEVATED; BEDRAILS UP X2; BED DOWN. ER MD MADE AWARE OF PT STATUS.
--- NOTE | 2022-12-04 14:43 | NUR ---
PT HAS BEEN MEDICATED PER PROVIDERS ORDERS.
[2022-12-04 14:51] LABS: BASOPHILS # (AUTO) 0.1 K/uL (0.00-0.22); BASOPHILS % (AUTO) 0.7 % (0.0-2.0); EOSINOPHILS # (AUTO) 0.5 K/uL (0-0.4); EOSINOPHILS % (AUTO) 6.6 % (0.0-4.0); HEMATOCRIT 37.9 % (36-48); HEMOGLOBIN 12.5 g/dL (12.0-16.0); LYMPHOCYTES # (AUTO) 1.7 K/uL (2.5-16.5); LYMPHOCYTES % (AUTO) 23.5 % (20.5-51.1); MEAN CORPUSCULAR HEMOGLOBIN 27 pg (27-31); MEAN CORPUSCULAR HGB CONC 33 g/dL (33-37); MEAN CORPUSCULAR VOLUME 81.6 fL (80-94); MONOCYTES # (AUTO) 0.6 K/uL (0.8-1.0); MONOCYTES % (AUTO) 8.7 % (1.7-9.3); NEUTROPHILS # (AUTO) 4.3 K/uL (1.8-7.7); NEUTROPHILS % (AUTO) 60.5 % (42.2-75.2); PLATELET COUNT (AUTO) 251 K/uL (140-450); RED BLOOD CELL COUNT(AUTO) 4.64 MIL/uL (4.20-5.40); RED CELL DISTRIBUTION WIDTH 15.1 % (11.6-13.7); WHITE BLOOD COUNT (AUTO) 7.2 K/uL (4.8-10.8)
[2022-12-04 14:59] VITALS: O2SAT 98
[2022-12-04 15:08] LABS: ALBUMIN 3.9 g/dL (3.4-5.0); ANION GAP 1.6 (8-16); CARBON DIOXIDE 27.7 mmol/L (21-32); CREATININE 0.8 mg/dL (0.6-1.3); POTASSIUM 4.3 mmol/L (3.5-5.1); TOTAL BILIRUBIN 0.4 mg/dL (0.0-1.0)
--- NOTE | 2022-12-04 16:33 | NUR ---
PT IS HAVING ULTRA SOUND.
[2022-12-04] MEDS ORDERED: MORPHINE SULFATE 4 MG/ML SYR IM ONE (16:40)
[2022-12-04] MEDS ORDERED: predniSONE 20 MG TAB PO ONE (16:40)
[2022-12-04] MEDS ORDERED: GABAPENTIN 300 MG CAP PO ONE (17:10)
[2022-12-04] MEDS ORDERED: METH-1681 PO (17:57)
[2022-12-04] MEDS ORDERED: IBUP-2213 PO (17:57)
[2022-12-04] MEDS ORDERED: PRED20TA5 PO (17:57)
[2022-12-04] MEDS ORDERED: GABAPENTIN 300 MG CAP ONE (18:21)
[2022-12-04 18:30] VITALS: BP 143/82; PULSE 80; RESP 20; TEMP 97.8; O2SAT 98
--- NOTE | 2022-12-04 18:30 | NUR ---
Patient discharged with v/s stable. Written and verbal after care instructions given and explained. Patient alert, oriented and verbalized understanding of instructions. Ambulatory with steady gait. All questions addressed prior to discharge. ID band removed. Patient advised to follow up with PMD. Rx of ibuprofen, ,methocarbamol,predisone given. Patient educated on indication of medication including possible reaction and side effects. Opportunity to ask questions provided and answered.
--- NOTE | 2022-12-04 18:40 | NUR ---
The patient's care was reviewed and supervised by FRANCESCO CALLE RN.
== END 2022-12-04 18:30 | disposition home or self-care (01) ==
LOC: MED 13:21
DX: R60.9 Edema, unspecified (principal); M25.572 Pain in left ankle and joints of left foot; Z79.899 Other long term (current) drug therapy
CPT/HCPCS: 36415; 71045; 80053; 83880; 84484; 85025; 93005; 93970; 96372; 99285; J1885; J7512; Q0092; J2270

== ENCOUNTER 2022-12-05 06:04 | Outpatient (CLI) | payer OTHER ==
[~2022-12-05 06:04] MED LIST changes: +METH-1681 PO; +PRED20TA5 PO
[2022-12-05 06:57] LABS: BASOPHILS % (AUTO) 0.6 % (0.0-2.0); EOSINOPHILS # (AUTO) 0.4 K/uL (0-0.4); EOSINOPHILS % (AUTO) 6.4 % (0.0-4.0); HEMATOCRIT 36.7 % (36-48); HEMOGLOBIN 12.1 g/dL (12.0-16.0); LYMPHOCYTES # (AUTO) 1.2 K/uL (2.5-16.5); LYMPHOCYTES % (AUTO) 18.3 % (20.5-51.1); MEAN CORPUSCULAR HEMOGLOBIN 27 pg (27-31); MEAN CORPUSCULAR HGB CONC 33 g/dL (33-37); MEAN CORPUSCULAR VOLUME 81.5 fL (80-94); MONOCYTES # (AUTO) 0.6 K/uL (0.8-1.0); NEUTROPHILS # (AUTO) 4.3 K/uL (1.8-7.7); NEUTROPHILS % (AUTO) 65.7 % (42.2-75.2); PLATELET COUNT (AUTO) 229 K/uL (140-450); RED BLOOD CELL COUNT(AUTO) 4.51 MIL/uL (4.20-5.40); RED CELL DISTRIBUTION WIDTH 15.5 % (11.6-13.7); WHITE BLOOD COUNT (AUTO) 6.5 K/uL (4.8-10.8)
[2022-12-05 06:59] LABS: ALBUMIN 3.5 g/dL (3.4-5.0); ANION GAP 14.3 (8-16); CARBON DIOXIDE 24.9 mmol/L (21-32); CHOL/HDL RATIO 2.6 (1-4.5); CREATININE 0.8 mg/dL (0.6-1.3); POTASSIUM 4.2 mmol/L (3.5-5.1); THYROID STIMULATING HORMONE 1.74 uIU/mL (0.34-3.74); TOTAL BILIRUBIN 0.3 mg/dL (0.0-1.0)
[2022-12-05 07:14] LABS: APPEARANCE,URINE CLEAR (CLEAR); BILIRUBIN,URINE NEGATIVE (NEGATIVE); BLOOD, URINE NEGATIVE (NEGATIVE); COLOR,URINE YELLOW (YELLOW); LEUKOCYTE ESTERASE ,URINE NEGATIVE (NEGATIVE); NITRITE, URINE NEGATIVE (NEGATIVE); UGLUCOSE NEGATIVE (NEGATIVE)
== END 2022-12-05 21:22 | disposition home or self-care (01) ==
LOC: MLB 06:04
PROVIDERS: ATTEND Specialist
DX: E23.2 Diabetes insipidus (principal); R73.09 Other abnormal glucose; E53.8 Deficiency of other specified B group vitamins; E55.9 Vitamin D deficiency, unspecified; E66.01 Morbid (severe) obesity due to excess calories; E78.00 Pure hypercholesterolemia, unspecified
CPT/HCPCS: 36415; 80053; 81003; 82306; 82607; 82746; 83036; 84443; 85025

== ENCOUNTER 2022-12-15 12:02 | Emergency (ER) | payer OTHER ==
[~2022-12-15] VITALS: Ht 172.7 cm; Wt 134.3 kg
[2022-12-15 12:14] VITALS: BP 138/62; PULSE 94; RESP 16; TEMP 97.7; O2SAT 95
--- NOTE | 2022-12-15 12:49 | NUR ---
PT WALKED TO BED 3 W/STEADY GAIT.
--- NOTE | 2022-12-15 12:58 | NUR ---
62 YO F C/O VAGINAL BURNING WORSENS AT URINATION X 1WK. PT ALSO C/O COUGH X 2WKS. PT N,V,D,C, FEVER, CHILLS, ROBLES, BACK PAIN, CP, SOB, WEAKNESS, INCONTINANCE URINARY/BOWEL. NAD NOTED, SAFETY MAINTAINED. HX: DM
[2022-12-15] MEDS ORDERED: ALBU0.0912 INH (13:26)
[2022-12-15] MEDS ORDERED: [UNRECOGNIZED DRUG - CODE] TP (13:26)
--- NOTE | 2022-12-15 13:32 | NUR ---
Patient discharged with v/s stable. Written and verbal after care instructions given and explained. Patient alert, oriented and verbalized understanding of instructions. Ambulatory with steady gait. All questions addressed prior to discharge. ID band removed. Patient advised to follow up with PMD. Rx of ESTROGEL, PROVENTIL given. Opportunity to ask questions provided and answered.
== END 2022-12-15 13:32 | disposition home or self-care (01) ==
LOC: MED 12:02
DX: N76.0 Acute vaginitis (principal); Z79.899 Other long term (current) drug therapy
CPT/HCPCS: 99283

== ENCOUNTER 2023-05-31 20:19 | Emergency (ER) | payer OTHER ==
[~2023-05-31] VITALS: Ht 172.7 cm; Wt 134.3 kg
[~2023-05-31 20:19] MED LIST changes: +ALBU0.0912 INH; +[UNRECOGNIZED DRUG - CODE] TP
[2023-05-31 20:30] VITALS: BP 161/75; PULSE 96; RESP 20; TEMP 98.7; O2SAT 95
[2023-05-31 21:32] LABS: FLU B ANTIGEN negative (NEGATIVE)
[2023-05-31 21:34] LABS: FLU A ANTIGEN POSITIVE (NEGATIVE)
[2023-05-31] MEDS ORDERED: AMOX-1230 PO ×2 (22:02→22:27)
[2023-05-31] MEDS ORDERED: AZIT250T4 PO ×2 (22:02→22:27)
[2023-05-31] MEDS ORDERED: ROBAC PO ×2 (22:02→22:27)
[2023-05-31 22:20] VITALS: BP 161/75; PULSE 96; RESP 20; TEMP 98.7; O2SAT 95
== END 2023-05-31 22:20 | disposition home or self-care (01) ==
LOC: MED 20:19
DX: J10.1 Influenza due to other identified influenza virus with other respiratory manifestations (principal); J18.9 Pneumonia, unspecified organism; Z20.822 Contact with and (suspected) exposure to COVID-19; E11.9 Type 2 diabetes mellitus without complications; Z79.899 Other long term (current) drug therapy; Z79.2 Long term (current) use of antibiotics; Z79.1 Long term (current) use of non-steroidal anti-inflammatories (NSAID)
CPT/HCPCS: 71045; 99284

== ENCOUNTER 2023-07-03 06:30 | Outpatient (CLI) | payer OTHER ==
[~2023-07-03 06:30] MED LIST changes: +AMOX-1230 PO; +AZIT250T4 PO; +ROBAC PO
== END 2023-07-03 19:54 | disposition home or self-care (01) ==
LOC: MRD 06:30
PROVIDERS: ATTEND Family Medicine Geriatric Medicine
DX: J18.9 Pneumonia, unspecified organism (principal); J98.4 Other disorders of lung; I70.0 Atherosclerosis of aorta; M47.814 Spondylosis without myelopathy or radiculopathy, thoracic region
CPT/HCPCS: 71046

== ENCOUNTER 2023-07-07 08:34 | Emergency (ER) | payer OTHER ==
[~2023-07-07] VITALS: Ht 172.7 cm; Wt 134.3 kg
[2023-07-07 08:52] VITALS: BP 149/88; PULSE 94; RESP 16; TEMP 97.5; O2SAT 97
[2023-07-07] MEDS ORDERED: ACETAMINOPHEN EXTRA STRENGTH 500 MG TAB PO ONE (09:10)
[2023-07-07] MEDS ORDERED: KETOROLAC 30 MG/ML VIAL IM ONE (09:10)
[2023-07-07] MEDS ORDERED: AMOX1TAB8 PO (09:49)
[2023-07-07] MEDS ORDERED: AZIT250T4 PO (09:50)
[2023-07-07 10:30] VITALS: BP 149/88; PULSE 94; RESP 16; TEMP 97.5; O2SAT 97
== END 2023-07-07 10:30 | disposition home or self-care (01) ==
LOC: MED 08:34
DX: J06.9 Acute upper respiratory infection, unspecified (principal); E11.9 Type 2 diabetes mellitus without complications; Z79.899 Other long term (current) drug therapy; Z79.4 Long term (current) use of insulin
CPT/HCPCS: 71045; 99283

== ENCOUNTER 2023-12-15 06:55 | Outpatient (CLI) | payer OTHER ==
[~2023-12-15 06:55] MED LIST changes: +AMOX1TAB8 PO
[2023-12-15 07:20] LABS: BASOPHILS % (AUTO) 0.7 % (0.0-2.0); EOSINOPHILS # (AUTO) 0.3 K/uL (0-0.4); EOSINOPHILS % (AUTO) 4.3 % (0.0-4.0); HEMATOCRIT 38.5 % (36-48); HEMOGLOBIN 12.7 g/dL (12.0-16.0); LYMPHOCYTES # (AUTO) 1.4 K/uL (2.5-16.5); LYMPHOCYTES % (AUTO) 22.5 % (20.5-51.1); MEAN CORPUSCULAR HEMOGLOBIN 27 pg (27-31); MEAN CORPUSCULAR HGB CONC 33 g/dL (33-37); MEAN CORPUSCULAR VOLUME 82.2 fL (80-94); MONOCYTES # (AUTO) 0.5 K/uL (0.8-1.0); MONOCYTES % (AUTO) 7.4 % (1.7-9.3); NEUTROPHILS % (AUTO) 65.1 % (42.2-75.2); PLATELET COUNT (AUTO) 224 K/uL (140-450); RED BLOOD CELL COUNT(AUTO) 4.69 MIL/uL (4.20-5.40); RED CELL DISTRIBUTION WIDTH 15.3 % (11.6-13.7); WHITE BLOOD COUNT (AUTO) 6.2 K/uL (4.8-10.8)
[2023-12-15 07:49] LABS: ALBUMIN 3.5 g/dL (3.4-5.0); ANION GAP 11.5 (8-16); CALCIUM 8.8 mg/dL (8.5-10.1); CARBON DIOXIDE 27.4 mmol/L (21-32); CHOL/HDL RATIO 3.2 (1-4.5); CREATININE 0.9 mg/dL (0.6-1.3); FREE T4 (FREE THYROXINE) 1.03 ng/dL (0.76-1.46); POTASSIUM 3.9 mmol/L (3.5-5.1); THYROID STIMULATING HORMONE 1.55 uIU/mL (0.34-3.74); TOTAL BILIRUBIN 0.6 mg/dL (0.0-1.0)
[2023-12-15 07:57] LABS: APPEARANCE,URINE CLEAR (CLEAR); BILIRUBIN,URINE NEGATIVE (NEGATIVE); BLOOD, URINE NEGATIVE (NEGATIVE); COLOR,URINE YELLOW (YELLOW); LEUKOCYTE ESTERASE ,URINE TRACE (NEGATIVE); NITRITE, URINE NEGATIVE (NEGATIVE); PROTEIN,URINE NEGATIVE (NEGATIVE); UGLUCOSE NEGATIVE (NEGATIVE); UROBILINOGEN,URINE 0.2 EU/dL (0.2 - 1)
[2023-12-16 10:07] LABS: HEMOGLOBIN A1C 6.7 % (4.8-5.6)
== END 2023-12-15 20:30 | disposition home or self-care (01) ==
LOC: MLB 06:55
PROVIDERS: ATTEND Family Medicine Geriatric Medicine
DX: Z13.228 Encounter for screening for other metabolic disorders (principal); Z13.29 Encounter for screening for other suspected endocrine disorder; Z13.0 Encounter for screening for diseases of the blood and blood-forming organs and certain disorders involving the immune mechanism; R73.03 Prediabetes; E78.5 Hyperlipidemia, unspecified
CPT/HCPCS: 36415; 80053; 81003; 83036; 84439; 84443; 84681; 85025

== ENCOUNTER 2024-03-12 15:19 | Emergency (ER) | payer OTHER ==
[~2024-03-12] VITALS: Ht 172.7 cm; Wt 123.5 kg
[2024-03-12 15:54] VITALS: BP 139/85; PULSE 83; RESP 18; TEMP 98; O2SAT 95
[2024-03-12 16:57] LABS: BASOPHILS % (AUTO) 0.6 % (0.0-2.0); EOSINOPHILS # (AUTO) 0.7 K/uL (0-0.4); EOSINOPHILS % (AUTO) 8.5 % (0.0-4.0); HEMATOCRIT 41.1 % (36-48); HEMOGLOBIN 13.4 g/dL (12.0-16.0); LYMPHOCYTES # (AUTO) 1.7 K/uL (2.5-16.5); LYMPHOCYTES % (AUTO) 21.3 % (20.5-51.1); MEAN CORPUSCULAR HEMOGLOBIN 27 pg (27-31); MEAN CORPUSCULAR HGB CONC 33 g/dL (33-37); MEAN CORPUSCULAR VOLUME 83.6 fL (80-94); MONOCYTES # (AUTO) 0.6 K/uL (0.8-1.0); MONOCYTES % (AUTO) 7.4 % (1.7-9.3); NEUTROPHILS # (AUTO) 4.9 K/uL (1.8-7.7); NEUTROPHILS % (AUTO) 62.2 % (42.2-75.2); PLATELET COUNT (AUTO) 226 K/uL (140-450); RED BLOOD CELL COUNT(AUTO) 4.92 MIL/uL (4.20-5.40); RED CELL DISTRIBUTION WIDTH 16.2 % (11.6-13.7); WHITE BLOOD COUNT (AUTO) 7.9 K/uL (4.8-10.8)
[2024-03-12 17:34] LABS: ANION GAP 11.6 (8-16); CALCIUM 9.4 mg/dL (8.5-10.1); CARBON DIOXIDE 29.5 mmol/L (21-32); CREATININE 0.8 mg/dL (0.6-1.3); POTASSIUM 4.1 mmol/L (3.5-5.1)
[2024-03-12 17:40] LABS: ALBUMIN 3.8 g/dL (3.4-5.0); BILIRUBIN,DIRECT 0.1 mg/dL (0.0-0.3); TOTAL BILIRUBIN 0.5 mg/dL (0.0-1.0); TOTAL PROTEIN, SERUM 7.3 g/dL (6.4-8.2)
[2024-03-12 18:35] LABS: APPEARANCE,URINE CLEAR (CLEAR); BILIRUBIN,URINE NEGATIVE (NEGATIVE); BLOOD, URINE NEGATIVE (NEGATIVE); COLOR,URINE YELLOW (YELLOW); LEUKOCYTE ESTERASE ,URINE NEGATIVE (NEGATIVE); NITRITE, URINE NEGATIVE (NEGATIVE); PROTEIN,URINE NEGATIVE (NEGATIVE); UGLUCOSE NEGATIVE (NEGATIVE); UROBILINOGEN,URINE 0.2 EU/dL (0.2 - 1)
[2024-03-12 18:40] VITALS: BP 140/68; PULSE 78; RESP 20; TEMP 98; O2SAT 97
== END 2024-03-12 18:40 | disposition home or self-care (01) ==
LOC: MED 15:19
DX: K42.9 Umbilical hernia without obstruction or gangrene (principal); R03.0 Elevated blood-pressure reading, without diagnosis of hypertension; E11.9 Type 2 diabetes mellitus without complications; Z79.899 Other long term (current) drug therapy
CPT/HCPCS: 36415; 80048; 80076; 81003; 83690; 85025; 99284

== ENCOUNTER 2024-03-16 06:09 | Outpatient (CLI) | payer OTHER ==
[2024-03-16 07:29] LABS: CHOL/HDL RATIO 3.2 (1-4.5)
== END 2024-03-16 19:43 | disposition home or self-care (01) ==
LOC: MLB 06:09
PROVIDERS: ATTEND Family Medicine Geriatric Medicine
DX: E78.5 Hyperlipidemia, unspecified (principal); R73.03 Prediabetes
CPT/HCPCS: 36415; 83036